=== PATIENT | male | born 1960 | race Caucasian/White ===

== ENCOUNTER 2017-09-10 17:46 | Emergency (ER) | payer MEDICARE, OTHER ==
[~2017-09-10] VITALS: Ht 177.8 cm; Wt 97.5 kg
[2017-09-10] MEDS ORDERED: Morphine Sulfate 4mg/ml Inj IVP ONE ×2 (18:00→19:45)
[2017-09-10 18:46] LABS: INR 1.1 (0.9-1.1); PROTHROMBIN TIME 11.6 SEC (9.30-11.50)
[2017-09-10 18:51] LABS: BASOPHILS % (AUTO) 1.6 % (0.0-2.0); EOSINOPHILS % (AUTO) 8.8 % (0.0-3.0); LYMPHOCYTES % (AUTO) 32.2 % (20.0-45.0); MEAN CORPUSCULAR HEMOGLOBIN 32.2 PG (27.0-31.0); MEAN CORPUSCULAR HGB CONC 31.6 G/DL (32.0-36.0); MEAN CORPUSCULAR VOLUME 102 FL (80-99); MEAN PLATELET VOLUME 6.2 FL (6.5-10.1); MONOCYTES % (AUTO) 7.8 % (1.0-10.0); NEUTROPHILS % (AUTO) 49.6 % (45.0-75.0); PLATELET COUNT 269 K/UL (150-450); RED BLOOD COUNT 4.25 M/UL (4.70-6.10); WHITE BLOOD COUNT 9.6 K/UL (4.8-10.8)
[2017-09-10 18:59] LABS: ANION GAP 7 mmol/L (5-15); CALCIUM 9.2 MG/DL (8.5-10.1); CARBON DIOXIDE 26 MMOL/L (21-32); CHLORIDE 108 MMOL/L (98-107); CREATININE 0.8 MG/DL (0.55-1.30); GLOMERULAR FILTRATION RATE > 60 mL/min (>60); POTASSIUM 5.8 MMOL/L (3.5-5.1); SODIUM 141 MMOL/L (136-145)
[2017-09-10 19:04] LABS: ALANINE AMINOTRANSFERASE 23 U/L (12-78); ALBUMIN/GLOBULIN RATIO 0.7 (1.0-2.7); ASPARTATE AMINO TRANSFERASE 42 U/L (15-37)
--- NOTE | 2017-09-10 21:44 | Emergency Room Report ---
History of Present Illness General Chief Complaint: Lower Extremity Injury Source: Patient (LUIS ESPINOZA) Present Illness HPI The patient is a 57-year-old male with a history of left-sided hemiplegia and hemiparesis, hypertension, hyperlipidemia, atrial fibrillation presenting for possible left leg infection. The patient was sent in from a convalescent facility. upon asking why the patient is here, his his first response was "drug me up bro". He states that he has had an ulcer on the left foot for the past year which has been treated at this facility by a wound care nurse. He states that he has noticed some increased swelling around the area as well as increased pain. Pain is a 10 out of 10 dull ache and does not radiate from the foot. Worse with touch. He states that he takes Percocet which usually helps but has not been helping recently. He denies any other symptoms including nausea, vomiting, fever, chills, chest pain, shortness of breath, chest pain, cough, increased numbness or tingling (LUIS ESPINOZA) Allergies: Uncoded Allergies: IV CONTRAST (Allergy, Unknown, 09/10/17) Patient History Past Medical History: see triage record, HTN, AFib Reviewed Nursing Documentation: PMH: Agreed, PSxH: Agreed (LUIS ESPINOZA) Nursing Documentation-PMH Hx Cardiac Problems: Yes - afib, high cholesterol Hx Hypertension: Yes Hx Gastrointestinal Problems: Yes - peptic ulcer Hx Neurological Problems: Yes - neuropathy, gout Hx Seizures: Yes (LUIS ESPINOZA.AAnika) Review of Systems All Other Systems: negative except mentioned in HPI (LUIS ESPINOZA P.AAnika) Physical Exam Vital Signs Date Time Temp Pulse Resp B/P (MAP) Pulse Ox O2 Delivery O2 Flow Rate FiO2 09/10/17 17:42 96.4 82 20 149/109 99 Room Air Sp02 EP Interpretation: reviewed, normal General Appearance: no apparent distress, alert, GCS 15, non-toxic Head: normocephalic, atraumatic Eyes: bilateral eye normal inspection, bilateral eye PERRL ENT: hearing grossly normal, normal pharynx, no angioedema, normal voice Respiratory: chest non-tender, lungs clear, normal breath sounds, speaking full sentences Musculoskeletal: back normal, decreased range of motion - L extremity, inflammation - L foot/ankle, swelling - L foot/ankle, tender - TTP to the L posterior foot/ankle Neurologic: alert, oriented x3, responsive, sensory intact Psychiatric: anxious Skin: normal color, no rash, warm/dry, well hydrated (LUIS ESPINOZA) Medical Decision Making PA Attestation Dr. Lezama is my supervising physician. Patient management was discussed with my supervising physician (LUIS ESPINOZA) Diagnostic Impression: Primary Impression: Left leg pain ER Course The patient is a 57 old male presenting for left foot pain Differential diagnoses considered but not limited to: Stasis ulcer, wound infection, cellulitis, DVT, chronic pain, among others Physical exam: Afebrile. No apparent distress There is tenderness to palpation, edema, and erythema to the left foot/ankle. Erythema and edema extends to the left mid calf. Patient is unable to move left extremities. There is an ulcer of the posterior foot/ankle. Mild serosanguineous fluid. No leukocytosis. The patient does have hyperkalemia. He has refused the redraw of potassium He has refused DVT study and EKG The patient is given a total of 8 mg of morphine and states that this is not enough and is demanding more pain medication. We informed him that we need to progress with our treatments/evaluation. He has refused. He is now cursing at staff and acting in a threatening behavior. He states that he would like to go home without any additional treatment or evaluation. I informed him that this is extremely dangerous and she would be leaving AGAINST MEDICAL ADVICE due to potential for worsening infection, loss of limb, organ damage, and even Laboratory Tests Test 09/10/17 18:18 White Blood Count 9.6 K/UL (4.8-10.8) Red Blood Count 4.25 M/UL (4.70-6.10) L Hemoglobin 13.7 G/DL (14.2-18.0) L Hematocrit 43.3 % (42.0-52.0) Mean Corpuscular Volume 102 FL (80-99) H Mean Corpuscular Hemoglobin 32.2 PG (27.0-31.0) H Mean Corpuscular Hemoglobin Concent 31.6 G/DL (32.0-36.0) L Red Cell Distribution Width 13.0 % (11.6-14.8) Platelet Count 269 K/UL (150-450) Mean Platelet Volume 6.2 FL (6.5-10.1) L Neutrophils (%) (Auto) 49.6 % (45.0-75.0) Lymphocytes (%) (Auto) 32.2 % (20.0-45.0) Monocytes (%) (Auto) 7.8 % (1.0-10.0) Eosinophils (%) (Auto) 8.8 % (0.0-3.0) H Basophils (%) (Auto) 1.6 % (0.0-2.0) Prothrombin Time 11.6 SEC (9.30-11.50) H Prothrombin Time INR 1.1 (0.9-1.1) PTT 31 SEC (23-33) Sodium Level 141 MMOL/L (136-145) Potassium Level 5.8 MMOL/L (3.5-5.1) H Chloride Level 108 MMOL/L (98-107) H Carbon Dioxide Level 26 MMOL/L (21-32) Anion Gap 7 mmol/L (5-15) Blood Urea Nitrogen 16 mg/dL (7-18) Creatinine 0.8 MG/DL (0.55-1.30) Estimate Glomerular Filtration Rate > 60 mL/min (>60) Glucose Level 102 MG/DL (74-106) Lactic Acid Level 1.80 mmol/L (0.66-2.22) Calcium Level 9.2 MG/DL (8.5-10.1) Total Bilirubin 0.4 MG/DL (0.2-1.0) Aspartate Amino Transferase (AST) 42 U/L (15-37) H Alanine Aminotransferase (ALT) 23 U/L (12-78) Alkaline Phosphatase 81 U/L (46-116) Total Protein 8.0 G/DL (6.4-8.2) Albumin 3.3 G/DL (3.4-5.0) L Globulin 4.7 g/dL Albumin/Globulin Ratio 0.7 (1.0-2.7) L Lab Results Impression No leukocytosis. The patient does have hyperkalemia. He has refused the redraw of potassium (LUIS ESPINOZA.A.) ER Course 57 yo M sent in for L ankle pain. pt states he injured it "months ago", appears to have chronic stasis ulcer. states he takes percocet for the pain. pt was sent in by [facility] for possible cellulitis. patient had labs drawn, shown to have hyperkalemia but possible hemolysis as patient has no renal failure. there was no leukocytosis. we wanted to re-draw labs however patient refusing. we gave patient 8 mg morphine total however has been very hostile/belligerent toward staff, cursing, and stating he wants to leave. I spoke with patients PMD Dr Cha to make him aware of the situation. At this point I did not believe the patient had cellulitis, likely a chronic ulcer. patient also has chronic pain for months for which he takes percocet. pmd requests DVT ultrasound although I was not highly suspicious as swelling was localized around L ankle only, no swelling of calf and no tenderness. ultrasound was ordered but again patient was extremely hostile and yelling to staff, refusing everything. i wanted to do an EKG however patient refusing all intervention. patient is aox4, has capacity, was not under the influence. patient signed out AMA. my self, the PA, and the nursing spoke to him numerous times conveying the need to perform tests and finish our workup, I was concerned about the hyperkalemia and wanted to repeat the labs, as well as do the ultrasound, patient refusing, told him risks of not perfoming these tests could lead to significant morbidity and lead to , he understands and still requests to leave. I spoke to Dotty the supervising coordinator at his facility and made her aware of the situation, the need to repeat the blood test, as well as precautions on when to have him return to the ED. she verbalized agreement. patient was aox4, appeared well / nontoxic upon leaving the ED. (Marbin Lezama M.D.) Last Vital Signs Date Time Temp Pulse Resp B/P (MAP) Pulse Ox O2 Delivery O2 Flow Rate FiO2 09/10/17 20:15 96.5 09/10/17 17:42 82 20 149/109 99 Room Air Status: improved (LUIS ESPINOZA) Disposition: AGAINST MEDICAL ADVICE Condition: Serious Patient Instructions: Cellulitis, Stasis Ulcer, Deep Vein Thrombosis Additional Instructions: I discussed my findings with the patient. He has decided to leave against our medical advice. He has not had complete treatment or testing done and is refusing all that we say. He understands the risks of leaving including worsening infection, loss of limb, organ damage, and even . Return to ER if you change your mind or for any reason. LUIS ESPINOZA Sep 10, 2017 21:44 Marbin Lezama M.D. Sep 11, 2017 08:53
[2017-09-11 00:52] VITALS: BP 149/109
== END 2017-09-11 00:52 | disposition left against medical advice (07) ==
LOC: EDBD 17:46 → EMR 18:45
DX: I10 Essential (primary) hypertension (principal); Z86.69 Personal history of other diseases of the nervous system and sense organs; Z91.041 Radiographic dye allergy status
CPT/HCPCS: 36415; 80053; 83605; 85025; 85610; 85730; 96374; 96375; 96376; 99284; J2270; J2405

== ENCOUNTER 2017-10-05 13:54 | Emergency (ER) | payer MEDICARE, OTHER ==
[~2017-10-05] VITALS: Ht 182.9 cm; Wt 99.8 kg
[2017-10-05 14:04] VITALS: BP 98/78
[2017-10-05] MEDS ORDERED: Piperacillin/Tazobactam 3.375 GM in NS 55 ML IVPB ONE (14:45)
[2017-10-05] MEDS ORDERED: Norco 10mg/325mg tab ORAL ONE (14:45)
[2017-10-05 15:30] VITALS: BP 100/84
--- NOTE | 2017-10-05 23:18 | Emergency Room Report ---
History of Present Illness General Chief Complaint: General Complaint Source: Medical Record Present Illness HPI Patient is a 57-year-old male who presented after increased lower extremity pain and swelling. The patient had prior history of episodes of cellulitis is lower currently. Patient had been using a wheelchair. He reports having increased pain to the area. Patient is regular and pain medications. Patient states that he has not been having a fever. History of markedly limited by patient's poor cooperation. The patient was sent in by primary care physician. Allergies: Uncoded Allergies: IV CONTRAST (Allergy, Unknown, 09/10/17) Patient History Past Medical History: see triage record Past Surgical History: unable to obtain Reviewed Nursing Documentation: PMH: Agreed, PSxH: Agreed Nursing Documentation-PMH Hx Cardiac Problems: Yes - a-fib Hx Hypertension: Yes Hx Pacemaker: No Hx Asthma: No Hx COPD: No Hx Gastrointestinal Problems: Yes - peptic ulcer Hx Dialysis: No History Of Psychiatric Problem: No Hx Neurological Problems: No Hx Cerebrovascular Accident: Yes Hx Seizures: Yes Review of Systems All Other Systems: limited - by poor cooperation by the patient Physical Exam Vital Signs Date Time Temp Pulse Resp B/P (MAP) Pulse Ox O2 Delivery O2 Flow Rate FiO2 10/05/17 13:54 98.1 88 1 107/58 99 10/05/17 14:04 Room Air General Appearance: well appearing, no apparent distress, alert, GCS 15, non- toxic Head: normocephalic, atraumatic ENT: hearing grossly normal, normal voice Neck: full range of motion, supple Respiratory: no respiratory distress, speaking full sentences Cardiovascular #1: normal peripheral pulses, regular rate, rhythm, edema - bilateral Gastrointestinal: normal inspection Musculoskeletal: no calf tenderness, decreased range of mation, swelling Neurologic: normal gait, motor weakness - paraplegia Psychiatric: judgement/insight normal, no delusions, other - hostile, abusive, using foul language Skin: other - left leg ulcer with surrounding erythema Medical Decision Making Diagnostic Impression: Primary Impression: Cellulitis ER Course The patient presented for lower extremity pain. Because of complexity of patient 's case laboratory testing and imaging studies were ordered. The pain medications as well as IV antibiotics and laboratory tests were ordered however patient refused. The patient appears to have have capacity to refuse. The patient said he did not want to be at this hospital and wanted to leave. The patient was advised risk benefits alternatives of leaving AGAINST MEDICAL ADVICE and he indicated understanding and all questions are answered patient still continued want to leave and signed AGAINST MEDICAL ADVICE. Despite risks including but not limited to , amputation, disability and worsening of current lifestyle. I discussed with the patient's primary care physician. The patient was sent back to his facility AGAINST MEDICAL ADVICE. Last Vital Signs Date Time Temp Pulse Resp B/P (MAP) Pulse Ox O2 Delivery O2 Flow Rate FiO2 10/05/17 15:30 98.2 95 20 100/84 100 Room Air Status: unchanged Disposition: AGAINST MEDICAL ADVICE Condition: Serious Referrals: RICK MANLEY (PCP) Davis Gray Oct 05, 2017 23:18
== END 2017-10-05 15:30 | disposition home or self-care (01) ==
LOC: EDUNIT# 13:54 → EDBD 13:54 → EMR 14:39
DX: L03.116 Cellulitis of left lower limb (principal); L97.929 Non-pressure chronic ulcer of unspecified part of left lower leg with unspecified severity; I10 Essential (primary) hypertension; I48.91 Unspecified atrial fibrillation; Z86.73 Personal history of transient ischemic attack (TIA), and cerebral infarction without residual deficits; Z91.041 Radiographic dye allergy status
CPT/HCPCS: 99283

== ENCOUNTER 2019-02-16 00:05 | Emergency (ER) | payer MEDICARE, OTHER ==
[~2019-02-16] VITALS: Ht 177.8 cm; Wt 86.2 kg
[2019-02-16] MEDS ORDERED: DOCUSATE SODIU100 M2 ORAL (00:13)
[2019-02-16] MEDS ORDERED: LIPITOR40 MG ORAL (00:13)
[2019-02-16] MEDS ORDERED: ELIQUIS5 MG PO (00:13)
[2019-02-16] MEDS ORDERED: INFUVITE ADULT10 ML IV (00:13)
[2019-02-16] MEDS ORDERED: NEURONTIN300 MG ORAL (00:13)
[2019-02-16] MEDS ORDERED: KEPPRA1000 MG ORAL (00:13)
[2019-02-16] MEDS ORDERED: ROBAXIN500 MG PO (00:13)
--- NOTE | 2019-02-16 00:15 | NUR ---
ED Nurse Note: Patient presents with recent change in apetite, lower abdominal pain and extensive digestive history along with psych history.
[2019-02-16 00:16] VITALS: BP 118/86
[2019-02-16] MEDS ORDERED: Morphine Sulfate 4mg/ml Inj (IV USE ONLY) IVP ONE (00:30)
[2019-02-16] MEDS ORDERED: Isovue-300 100ml vial INJ PRN (00:30)
[2019-02-16 00:54] LABS: BASOPHILS % (AUTO) 1.1 % (0.0-2.0); EOSINOPHILS % (AUTO) 5.8 % (0.0-3.0); HEMATOCRIT 48.2 % (42.0-52.0); LYMPHOCYTES % (AUTO) 44.3 % (20.0-45.0); MEAN CORPUSCULAR VOLUME 95 FL (80-99); MONOCYTES % (AUTO) 5.8 % (1.0-10.0); NEUTROPHILS % (AUTO) 43.1 % (45.0-75.0); PLATELET COUNT 257 K/UL (150-450); RED BLOOD COUNT 5.06 M/UL (4.70-6.10); WHITE BLOOD COUNT 8.3 K/UL (4.8-10.8)
[2019-02-16 01:01] LABS: INR 1.1 (0.9-1.1)
[2019-02-16 01:10] LABS: ANION GAP 8 mmol/L (5-15); BLOOD UREA NITROGEN 14 mg/dL (7-18); CALCIUM 9.3 MG/DL (8.5-10.1); CARBON DIOXIDE 28 MMOL/L (21-32); CHLORIDE 106 MMOL/L (98-107); CREATININE 0.9 MG/DL (0.55-1.30); POTASSIUM 3.9 MMOL/L (3.5-5.1); SODIUM 142 MMOL/L (136-145)
[2019-02-16 01:21] LABS: ALANINE AMINOTRANSFERASE 30 U/L (12-78); ALBUMIN 3.9 G/DL (3.4-5.0); ALBUMIN/GLOBULIN RATIO 0.9 (1.0-2.7); ALKALINE PHOSPHATASE 77 U/L (46-116); ASPARTATE AMINO TRANSFERASE 19 U/L (15-37); BILIRUBIN,TOTAL 0.5 MG/DL (0.2-1.0); CREATINE KINASE 76 U/L (26-308)
--- NOTE | 2019-02-16 01:34 | NUR ---
ED Nurse Note: Patient reports pain stopped for a little and came back again 05/07 at this time.
--- NOTE | 2019-02-16 01:34 | NUR ---
ED Nurse Note: Patient completed oral intake of contrast.
--- NOTE | 2019-02-16 02:16 | Diagnostic Imaging Report ---
EXAM: XR Chest, 1 View CLINICAL HISTORY: ABD PAIN TECHNIQUE: Frontal view of the chest. COMPARISON: No relevant prior studies available. FINDINGS: Lungs: Dependent atelectasis. Pleural space: Unremarkable. No pneumothorax. Heart: Mild enlargement of cardiomediastinal silhouette. Mediastinum: See above. Bones/joints: Unremarkable. IMPRESSION: No acute findings.
[2019-02-16 02:24] LABS: APPEARANCE,URINE CLEAR; BILIRUBIN, URINE NEGATIVE (NEGATIVE); GLUCOSE, URINE (UA) NEGATIVE (NEGATIVE); KETONES,URINE NEGATIVE (NEGATIVE); LEUKOCYTE ESTERASE ,URINE NEGATIVE (NEGATIVE); NITRITE,URINE NEGATIVE (NEGATIVE); PH,URINE 5 (4.5-8.0); PROTEIN,URINE NEGATIVE (NEGATIVE); UROBILINOGEN,URINE NORMAL MG/DL (0.0-1.0)
--- NOTE | 2019-02-16 02:30 | Emergency Room Report ---
History of Present Illness General Chief Complaint: Abdominal Pain Source: Patient, EMS Present Illness HPI Patient presents with several days of abdominal pain. Also he vomited earlier today. He didn't see the color the vomitus. He didn't taste blood. He's been constipated. He takes OXYCODONE for chronic back [facility] the [facility]. He is status post stroke. The patient states that he had a similar episode of the abdominal pain and it was diagnosed as colitis. It was involving his small bowel. He denies fevers or chills. There's no dysuria. He rates the pain 8/10. Pressure and aching. Crampy quality to it also. No URI sy, chest pain, rashes, change in weakness. He is frustrated and depressed, but not suicidal. Allergies: Uncoded Allergies: IV CONTRAST (Allergy, Unknown, 09/10/17) Patient History Past Medical History: see triage record Social History: Reports: smoking; Denies: alcohol use, drug use Social History Narrative detention facility Reviewed Nursing Documentation: PMH: Agreed; PSxH: Agreed Nursing Documentation-PMH Hx Cardiac Problems: Yes - a-fib Hx Hypertension: Yes Hx Pacemaker: No Hx Asthma: No Hx COPD: No Hx Gastrointestinal Problems: Yes - peptic ulcer, colonic polyps Hx Dialysis: No History Of Psychiatric Problem: Yes - schizophrenia Hx Neurological Problems: Yes - depression Hx Cerebrovascular Accident: Yes - left side deficit Hx Seizures: Yes Review of Systems All Other Systems: negative except mentioned in HPI Physical Exam Vital Signs Date Time Temp Pulse Resp B/P (MAP) Pulse Ox O2 Delivery O2 Flow Rate FiO2 02/16/19 00:04 97.3 64 20 118/86 94 Room Air Sp02 EP Interpretation: reviewed, normal General Appearance: well appearing, no apparent distress, GCS 15 Head: normocephalic Eyes: bilateral eye normal inspection, bilateral eye PERRL, bilateral eye EOMI ENT: moist mucus membranes Neck: supple Respiratory: lungs clear, normal breath sounds Cardiovascular #1: regular rate, rhythm Cardiovascular #2: 2+ radial (R) Gastrointestinal: normal inspection, normal bowel sounds, no mass, no guarding , no rebound, tenderness - diffuse Genitourinary: no CVA tenderness Musculoskeletal: back normal, other - contractiures L hand Neurologic: alert, oriented x3, sensory intact, motor weakness - L sided Psychiatric: depressed affect Skin: normal inspection, warm/dry Medical Decision Making Diagnostic Impression: Primary Impression: Abdominal pain Qualified Codes: R10.84 - Generalized abdominal pain Additional Impressions: Vomiting Qualified Codes: R11.2 - Nausea with vomiting, unspecified Constipation Qualified Codes: K59.03 - Drug induced constipation Status post stroke ER Course Patient presents with abdominal pain. Differential includes diverticulitis, UTI , SBO, colitis, GItis, pancreatitis, constipation amongst others. This patient has co-morbidities and his exam might not demonstrate significant pathology. Evaluation with EKG, CXR, CT abdomen and pelvis, labs. Treatment with IV hydration and analgesia. EKG without injury. CXR no infiltrates. Labs essentially normal (normal WBC). CT abdomen with increased stool load, no other pathology. Patient awakened by me for re-evaluation. Patient still complaining of pain. Abdomen is soft without guarding. Discussed observation as outpatient. Patient brings up other problems - back pain, vomiting. He states he refuses to take lactulose as prescribed because the food at the SNF causes diarrhea. Then after evaluation, patient had episode of vomiting (had not vomited in ED.) Reglan and Benadryl given. When ambulance here, requesting more pain medicine - states pain 8/10. Percocet given. No medical emergency at this time. Patient stable for outpatient observation and treatment. Laboratory Tests Test 02/16/19 00:30 02/16/19 02:02 White Blood Count 8.3 K/UL (4.8-10.8) Red Blood Count 5.06 M/UL (4.70-6.10) Hemoglobin 17.0 G/DL (14.2-18.0) Hematocrit 48.2 % (42.0-52.0) Mean Corpuscular Volume 95 FL (80-99) Mean Corpuscular Hemoglobin 33.5 PG (27.0-31.0) H Mean Corpuscular Hemoglobin Concent 35.2 G/DL (32.0-36.0) Red Cell Distribution Width 12.0 % (11.6-14.8) Platelet Count 257 K/UL (150-450) Mean Platelet Volume 6.4 FL (6.5-10.1) L Neutrophils (%) (Auto) 43.1 % (45.0-75.0) L Lymphocytes (%) (Auto) 44.3 % (20.0-45.0) Monocytes (%) (Auto) 5.8 % (1.0-10.0) Eosinophils (%) (Auto) 5.8 % (0.0-3.0) H Basophils (%) (Auto) 1.1 % (0.0-2.0) Prothrombin Time 11.4 SEC (9.30-11.50) Prothrombin Time INR 1.1 (0.9-1.1) PTT 29 SEC (23-33) Sodium Level 142 MMOL/L (136-145) Potassium Level 3.9 MMOL/L (3.5-5.1) Chloride Level 106 MMOL/L (98-107) Carbon Dioxide Level 28 MMOL/L (21-32) Anion Gap 8 mmol/L (5-15) Blood Urea Nitrogen 14 mg/dL (7-18) Creatinine 0.9 MG/DL (0.55-1.30) Estimate Glomerular Filtration Rate > 60 mL/min (>60) Glucose Level 91 MG/DL (74-106) Calcium Level 9.3 MG/DL (8.5-10.1) Total Bilirubin 0.5 MG/DL (0.2-1.0) Aspartate Amino Transferase (AST) 19 U/L (15-37) Alanine Aminotransferase (ALT) 30 U/L (12-78) Alkaline Phosphatase 77 U/L (46-116) Total Creatine Kinase 76 U/L (26-308) Troponin I 0.024 ng/mL (0.000-0.056) Total Protein 8.4 G/DL (6.4-8.2) H Albumin 3.9 G/DL (3.4-5.0) Globulin 4.5 g/dL Albumin/Globulin Ratio 0.9 (1.0-2.7) L Lipase 129 U/L (73-393) Urine Color Yellow Urine Appearance Clear Urine pH 5 (4.5-8.0) Urine Specific [place] 1.025 (1.005-1.035) Urine Protein Negative (NEGATIVE) Urine Glucose (UA) Negative (NEGATIVE) Urine Ketones Negative (NEGATIVE) Urine Blood 2+ (NEGATIVE) H Urine Nitrite Negative (NEGATIVE) Urine Bilirubin Negative (NEGATIVE) Urine Urobilinogen Normal MG/DL (0.0-1.0) Urine Leukocyte Esterase Negative (NEGATIVE) Urine RBC 2-4 /HPF (0 - 0) H Urine WBC 0 /HPF (0 - 0) Urine Squamous Epithelial Cells None /LPF (NONE/OCC) Urine Bacteria None /HPF (NONE) EKG Diagnostic Results Rate: normal Rhythm: NSR ST Segments: no acute changes Rhythm Strip Diag. Results EP Interpretation: yes Rhythm: NSR, no PVC's, no ectopy Chest X-Ray Diagnostic Results Chest X-Ray Diagnostic Results : Chest X-Ray Ordered: Yes # of Views/Limited/Complete: 1 View Indication: Other EP Interpretation: Yes Interpretation: no consolidation, no effusion, no pneumothorax Impression: No acute disease Electronically Signed by: Electronically signed by Billy Burton MD CT/MRI/US Diagnostic Results CT/MRI/US Diagnostic Results : Imaging Test Ordered: abd/pelvis Impression Rectal fecal distention with form stool. Otherwise no acute findings in the abdomen or pelvis with right nephrolithiasis noted Last Vital Signs Date Time Temp Pulse Resp B/P (MAP) Pulse Ox O2 Delivery O2 Flow Rate FiO2 02/16/19 05:03 97.3 76 17 125/103 95 Room Air Status: improved Disposition: XFER SNF Condition: Improved Scripts Ondansetron Odt* (ZOFRAN ODT*) 4 Mg Tab.rapdis 4 MG BC EVERY 8 HOURS, #10 TAB 1 Refill Prov: Billy Burton MD 02/16/19 Billy Burton MD Feb 16, 2019 02:30
[2019-02-16 02:32] LABS: COLOR,URINE YELLOW
[2019-02-16] MEDS ORDERED: HYDROmorphone 1mg/ml Carpuject IVP ONE (03:45)
[2019-02-16 04:00] VITALS: BP 125/103
--- NOTE | 2019-02-16 04:01 | NUR ---
ED Nurse Note: Patient attempting to go to sleep, vital signs stable.
--- NOTE | 2019-02-16 04:04 | Diagnostic Imaging Report ---
EXAM: CT Abdomen and Pelvis Without Intravenous Contrast CLINICAL HISTORY: ABD PAIN TECHNIQUE: Axial computed tomography images of the abdomen and pelvis without intravenous contrast. CTDI is 29.16 mGy and DLP is 1520 mGy-cm. One or more of the following dose reduction techniques were used: automated exposure control, adjustment of the mA and/or kV according to patient size, use of iterative reconstruction technique. COMPARISON: same day chest x-ray FINDINGS: Lung bases: Unremarkable. No mass. No consolidation. ABDOMEN: Liver: Streak artifact from the patient's forearms and jewelry slightly obscure detail in the upper abdomen, especially the liver. Gallbladder and bile ducts: Unremarkable. No calcified stones. No ductal dilation. Pancreas: Unremarkable. No ductal dilation. Spleen: Unremarkable. No splenomegaly. Adrenals: Unremarkable. No mass. Kidneys and ureters: 5 mm nonobstructing inferior pole right kidney stone. Stomach and bowel: Stool-filled rectal vault to 7.4 cm AP by 6.8 cm transverse axial diameter. Scattered colonic diverticulosis. No obstruction. No mucosal thickening. PELVIS: Appendix: No findings to suggest acute appendicitis. Bladder: Unremarkable. No stones. Reproductive: Unremarkable as visualized. ABDOMEN and PELVIS: Intraperitoneal space: Unremarkable. No free air. No significant fluid collection. Bones/joints: Dextroscoliosis of the thoracolumbar spine and degenerative changes. No fracture or aggressive appearing osseous lesions. No significant listhesis. No dislocation. Soft tissues: Unremarkable. Vasculature: Scattered arterial calcifications. No abdominal aortic aneurysm. Lymph nodes: Unremarkable. No enlarged lymph nodes. IMPRESSION: Rectal fecal distention with formed stool. Correlate for constipation. Otherwise no acute findings in the abdomen or pelvis with right nephrolithiasis noted.
[2019-02-16] MEDS ORDERED: ONDANSETRON ODT4 MG BC (04:24)
--- NOTE | 2019-02-16 04:25 | NUR ---
Spoke with Nitza at [facility], aware of patient going back. Spoke with Mary at [facility] [phone].
[2019-02-16] MEDS ORDERED: DiphenhydrAMINE 50mg/ml Inj IVP ONE (04:45)
[2019-02-16] MEDS ORDERED: Metoclopramide 10mg/2ml Inj IVP ONE (04:45)
[2019-02-16] MEDS ORDERED: oxyCODONE HCL/Acetaminophen 5/325mg ORAL ONE (05:00)
--- NOTE | 2019-02-16 05:01 | NUR ---
ED Nurse Note: Patient ready for transport back to [facility]. Patient is awake, alert and oriented x4, ambulatory with assistance, utilizes wheel chair. ID band removed, IV removed. Patient verbalized understanding of disharge instructions. Patient departed with BLS.
[2019-02-16 05:03] VITALS: BP 125/103
== END 2019-02-16 05:04 ==
LOC: EDBD 00:05 → EMR 02:00
DX: R10.84 Generalized abdominal pain (principal); R11.2 Nausea with vomiting, unspecified; K59.03 Drug induced constipation; Z91.041 Radiographic dye allergy status; F17.200 Nicotine dependence, unspecified, uncomplicated; I10 Essential (primary) hypertension; Z86.010 Personal history of colon polyps; F20.9 Schizophrenia, unspecified; F32.9 Major depressive disorder, single episode, unspecified; G81.94 Hemiplegia, unspecified affecting left nondominant side; G40.909 Epilepsy, unspecified, not intractable, without status epilepticus; K57.90 Diverticulosis of intestine, part unspecified, without perforation or abscess without bleeding; N20.0 Calculus of kidney
CPT/HCPCS: 36415; 71045; 74176; 80053; 81003; 82550; 83690; 84484; 85025; 85610; 85730; 93005; 96361; 96374; 96375; 99284; J1170; J1200; J2270; J2405; J2765